=== PATIENT | female | born 1935 | race Caucasian/White ===

== ENCOUNTER 2025-09-07 15:50 | Inpatient (IN) | payer MEDICARE, OTHER ==
[~2025-09-07] VITALS: Ht 162.6 cm; Wt 80.8 kg
[2025-09-07] MEDS ORDERED: IV NORMAL SALINE 1000 ML BAG IV ONE (16:00)
[2025-09-07 16:45] LABS: PLATELET COUNT (AUTO) 181 K/uL (179-408); RED BLOOD CELL COUNT(AUTO) 3.59 MIL/uL (3.63-4.92); RED CELL DISTRIBUTION WIDTH 14.0 % (12.3-17.7); WHITE BLOOD COUNT (AUTO) 6.3 K/uL (3.8-11.8)
[2025-09-07] MEDS ORDERED: CEFTRIAXONE /D5W 50ML IVPB **ER PYXIS IV ONE ×2 (16:50→22:30)
[2025-09-07 16:56] LABS: CREATININE 1.2 mg/dL (0.6-1.3); SODIUM SERUM 140 mmol/L (136-145); UREA NITROGEN, BLOOD 28 mg/dL (7-18)
[2025-09-07 17:02] LABS: ASPARTATE AMINOTRANSFERASE 12 U/L (15-37); TOTAL PROTEIN, SERUM 6.8 g/dL (6.4-8.2)
[2025-09-07] MEDS: IV NORMAL SALINE 500 ML BAG IV ONE (17:04)
[2025-09-07] MEDS ORDERED: ACETAMINOPHEN 500 MG TABLET ONE (17:37)
[2025-09-07] MEDS: ACETAMINOPHEN 500 MG TABLET PO ONE (17:43)
[2025-09-07] MEDS: ASPIRIN 81 MG TAB.CHEW PO ONE (17:43)
[2025-09-07] MEDS ORDERED: MAGNESIUM HYDROXIDE 30 ML LIQUID UDC PO PRN (18:45)
[2025-09-07] MEDS ORDERED: REMEDY ESSENTIAL ZINC PASTE 113 GM TP PRN (18:45)
[2025-09-07] MEDS ORDERED: ONDANSETRON 4 MG/2 ML VIAL IV PRN (18:45)
[2025-09-07] MEDS ORDERED: ENOXAPARIN SODIUM 40 MG/0.4 ML DISP.SYRIN SQ SCH (18:45)
[2025-09-07 19:26] VITALS: BP 128/66
[2025-09-07] MEDS ORDERED: DOSING PER PHARMACY-ENOXAPARIN XX PRN (21:30)
[2025-09-07 21:57] VITALS: BP 98/49; TEMP 98; O2SAT 96
[2025-09-07] MEDS: ENOXAPARIN SODIUM 80 MG/0.8 ML DISP.SYRIN SQ SCH (22:12)
[2025-09-07] MEDS: IV NS 1000 ML 1,000 ML IV PRN (22:55)
[2025-09-07 23:25] VITALS: BP 142/52; TEMP 97.6; O2SAT 94
[2025-09-08 05:35] VITALS: BP 119/60; TEMP 98; O2SAT 95
[2025-09-08] MEDS: PANTOPRAZOLE SODIUM 40 MG TABLET.DR PO SCH (06:21)
[2025-09-08 06:35] LABS: PLATELET COUNT (AUTO) 169 K/uL (179-408); RED BLOOD CELL COUNT(AUTO) 3.34 MIL/uL (3.63-4.92); RED CELL DISTRIBUTION WIDTH 14.0 % (12.3-17.7); WHITE BLOOD COUNT (AUTO) 5.1 K/uL (3.8-11.8)
[2025-09-08 06:49] LABS: CREATININE 1.2 mg/dL (0.6-1.3); SODIUM SERUM 143 mmol/L (136-145); UREA NITROGEN, BLOOD 29 mg/dL (7-18)
[2025-09-08 07:54] VITALS: BP 146/57; TEMP 97.6; O2SAT 97
[2025-09-08] MEDS: ASPIRIN 81 MG TAB.CHEW PO SCH (09:53)
[2025-09-08] MEDS ORDERED: AZEL6DRO5 EACHEYE (10:32)
[2025-09-08] MEDS ORDERED: FERR-68 PO (10:32)
[2025-09-08] MEDS ORDERED: TOPI25TA49 PO (10:32)
[2025-09-08] MEDS ORDERED: DICL112S2 TP (10:32)
[2025-09-08] MEDS ORDERED: PENT100C9 PO (10:32)
[2025-09-08] MEDS ORDERED: LEVO100T10 PO (10:32)
[2025-09-08] MEDS ORDERED: LIPA1CAP15 PO ×2 (10:32)
[2025-09-08] MEDS ORDERED: CARB1TAB31 PO (10:32)
[2025-09-08] MEDS ORDERED: MECL-159 PO (10:32)
[2025-09-08] MEDS ORDERED: MOUNJARO SQ (10:32)
[2025-09-08] MEDS ORDERED: FURO40TA5 PO (10:36)
[2025-09-08] MEDS ORDERED: TAMS-3 PO (10:36)
[2025-09-08] MEDS ORDERED: METO-356 PO (10:36)
[2025-09-08] MEDS ORDERED: MONT10TA33 PO (10:36)
[2025-09-08] MEDS ORDERED: PITA2TAB PO (10:36)
[2025-09-08] MEDS ORDERED: GABA300C PO (10:36)
[2025-09-08] MEDS ORDERED: METF-886 PO (10:36)
[2025-09-08] MEDS ORDERED: SACU1TAB PO (10:36)
[2025-09-08] MEDS ORDERED: FAMO-132 PO (10:36)
[2025-09-08] MEDS ORDERED: ESOM40CA PO (10:36)
[2025-09-08] MEDS ORDERED: TRIA15OI2 TP (10:40)
[2025-09-08] MEDS ORDERED: MIRA25TA PO (10:40)
[2025-09-08] MEDS ORDERED: FLUT1BLS IH (10:40)
[2025-09-08] MEDS ORDERED: EPLE25TA10 PO (10:40)
[2025-09-08] MEDS ORDERED: ALBU8.5H8 IH (10:40)
[2025-09-08] MEDS ORDERED: IPRA3AMP23 IH (10:41)
[2025-09-08] MEDS ORDERED: MECLIZINE HCL 25 MG TABLET PO PRN (11:00)
[2025-09-08] MEDS ORDERED: CREON 36000 UNIT PO PRN (11:00)
[2025-09-08] MEDS ORDERED: ALBUTEROL SULFATE 8 GM HFA.AER.AD IH PRN (11:00)
[2025-09-08 11:21] LABS: BASOPHILS % (MANUAL) 1 % (0-2); EOSINOPHILS % (MANUAL) 3 % (0-8); LYMPHOCYTES % (MANUAL) 27 % (20-40); MONOCYTES % (MANUAL) 15 % (2-10); NEUTROPHILS % (MANUAL) 55 % (42-75); PLATELET ESTIMATE DECREASED
[2025-09-08 11:53] VITALS: BP 116/56; TEMP 97.7; O2SAT 97
[2025-09-08] MEDS ORDERED: ALBUTEROL SULFATE 2.5 MG/3 ML NEBU IH PRN (12:30)
[2025-09-08] MEDS: CARBIDOPA/LEVODOPA 10-100MG TABLET PO SCH (12:46)
[2025-09-08] MEDS ORDERED: ELMIRON 100 MG PO SCH (13:00)
[2025-09-08 14:02] LABS: *BILIRUBIN,URIN NEGATIVE (NEGATIVE); *BLOOD, URINE NEGATIVE (NEGATIVE); *CLARITY,URINE CLEAR (CLEAR); *COLOR,URINE YELLOW (YELLOW); *KETONES,URINE NEGATIVE (NEGATIVE); *PROTEIN,URINE NEGATIVE (NEGATIVE); *UROBILINOGEN,URINE 0.2 E.U./dl (NORMAL); LEUKOCYTE ESTERASE ,URINE TRACE (NEGATIVE); NITRITE, URINE NEGATIVE (NEGATIVE); UGLUCOSE NEGATIVE (NEGATIVE)
[2025-09-08 14:26] LABS: SQUAMOUS EPITHELIAL CELL,UR FEW /HPF (NONE SEEN)
[2025-09-08 15:15] VITALS: BP 133/53; TEMP 97.8; O2SAT 98
[2025-09-08] MEDS: SACUBITRIL/VALSARTAN 24 MG-26 TABLET PO SCH (16:52)
[2025-09-08] MEDS: CREON 36000 UNIT PO SCH (18:13)
[2025-09-08] MEDS: FERROUS SULFATE 325 MG TABEC PO SCH (18:14)
[2025-09-08] MEDS: TOPIRAMATE 25 MG TABLET PO SCH (18:14)
[2025-09-08 19:33] VITALS: BP 140/63; TEMP 98; O2SAT 98
[2025-09-08] MEDS: GABAPENTIN 300 MG CAPSULE PO SCH (20:19)
[2025-09-08] MEDS: ENOXAPARIN SODIUM 80 MG/0.8 ML DISP.SYRIN SQ SCH (20:25)
[2025-09-08 23:10] VITALS: BP 131/47; TEMP 97.9; O2SAT 98
[2025-09-09 05:26] VITALS: BP 129/36; TEMP 97.8; O2SAT 96
[2025-09-09] MEDS: LEVOTHYROXINE SODIUM 100 MCG TABLET PO SCH (06:04)
[2025-09-09 06:32] LABS: PLATELET COUNT (AUTO) 174 K/uL (179-408); RED BLOOD CELL COUNT(AUTO) 3.32 MIL/uL (3.63-4.92); RED CELL DISTRIBUTION WIDTH 14.0 % (12.3-17.7); WHITE BLOOD COUNT (AUTO) 3.9 K/uL (3.8-11.8)
[2025-09-09 06:50] LABS: CREATININE 1.0 mg/dL (0.6-1.3); SODIUM SERUM 143 mmol/L (136-145); UREA NITROGEN, BLOOD 24 mg/dL (7-18)
[2025-09-09 08:05] VITALS: BP 147/60; TEMP 98.1; O2SAT 98
[2025-09-09] MEDS ORDERED: ENOXAPARIN SODIUM 80 MG/0.8 ML DISP.SYRIN SQ SCH (09:00)
[2025-09-09 09:22] LABS: BASOPHILS % (MANUAL) 2 % (0-2); EOSINOPHILS % (MANUAL) 3 % (0-8); LYMPHOCYTES % (MANUAL) 28 % (20-40); MONOCYTES % (MANUAL) 12 % (2-10); NEUTROPHILS % (MANUAL) 55 % (42-75); PLATELET ESTIMATE DECREASED
[2025-09-09] MEDS: CLOPIDOGREL 75 MG TABLET PO SCH (09:34)
[2025-09-09] MEDS: TRIAMCINOLONE ACET 0.1% OINT 60 GM TUBE TP PRN (09:34)
[2025-09-09] MEDS: MIRABEGRON 25 MG PO SCH (09:35)
[2025-09-09] MEDS: PITAVASTATIN 2 MG PO SCH (09:35)
[2025-09-09] MEDS: EPLERENONE 25 MG PO SCH (09:35)
[2025-09-09] MEDS: METOPROLOL SUCCINATE XL 25 MG TAB.SR.24H PO SCH (09:36)
[2025-09-09] MEDS: AZELASTINE 0.1% NS SCH (09:38)
[2025-09-09] MEDS: FLUTICASONE PROPIONATE NS SCH (09:39)
[2025-09-09 11:03] VITALS: BP 140/51; TEMP 97.8; O2SAT 97
[2025-09-09 16:47] VITALS: BP 146/57; TEMP 97.7; O2SAT 99
[2025-09-09] MEDS: MONTELUKAST SODIUM 10 MG TABLET PO SCH (17:18)
[2025-09-09 19:00] VITALS: BP 143/56; TEMP 98.3; O2SAT 95
[2025-09-09] MEDS: TAMSULOSIN HCL 0.4 MG CAP.SR.24H PO SCH (20:35)
[2025-09-09] MEDS: ACETAMINOPHEN 325 MG TABLET PO PRN (20:40)
[2025-09-09] MEDS ORDERED: ATORVASTATIN 40 MG TABLET PO SCH ×2 (21:00)
[2025-09-10] VITALS: BP 137/53; TEMP 97.8; O2SAT 95
[2025-09-10 04:00] VITALS: BP 133/48; TEMP 97.6; O2SAT 95
[2025-09-10 07:54] VITALS: BP 143/59; TEMP 97.7; O2SAT 96
[2025-09-10] MEDS ORDERED: CLOP75TA33 PO (10:23)
[2025-09-10] MEDS ORDERED: ASPI81TA31 PO (10:23)
[2025-09-10] MEDS ORDERED: AMOX250S68 PO (10:23)
[2025-09-10 11:21] VITALS: BP 138/60; TEMP 97.8; O2SAT 98
== END 2025-09-10 13:40 | DRG 640 ==
LOC: ER 15:50 → TELE3 21:20
PROVIDERS: ADMIT Student in an Organized Health Care Education/Training Program; ATTEND Student in an Organized Health Care Education/Training Program
DX: E86.0 Dehydration (principal); I21.A1 Myocardial infarction type 2; E44.0 Moderate protein-calorie malnutrition; I50.32 Chronic diastolic (congestive) heart failure; I25.10 Atherosclerotic heart disease of native coronary artery without angina pectoris; I11.0 Hypertensive heart disease with heart failure; G20.A1 Parkinson's disease without dyskinesia, without mention of fluctuations; F02.80 Dementia in other diseases classified elsewhere, unspecified severity, without behavioral disturbance, psychotic disturbance, mood disturbance, and anxiety; D64.9 Anemia, unspecified; Z88.2 Allergy status to sulfonamides; Z88.3 Allergy status to other anti-infective agents; Z87.440 Personal history of urinary (tract) infections; E78.5 Hyperlipidemia, unspecified; E11.9 Type 2 diabetes mellitus without complications; K21.9 Gastro-esophageal reflux disease without esophagitis; J44.9 Chronic obstructive pulmonary disease, unspecified; E07.9 Disorder of thyroid, unspecified
CPT/HCPCS: 36415; 70030-TC; 71045; 83605; 83735; 84100; 84443; 84484; 85025; 85730; 87040; 87086; 93307; A4663; A9150; G0378; J0696; J1650; J3535; J3590; J7040